=== PATIENT | female | born 1970 | race Caucasian/White ===

== ENCOUNTER 2023-07-05 07:51 | Emergency (ER) | payer BC, SELFPAY ==
[2023-07-05] MEDS ORDERED: MORPHINE 4 MG/ML SYR ONE (08:09)
[2023-07-05] MEDS ORDERED: NA CHLORIDE 0.9% 1,000 ML ONE ×2 (08:09→09:51)
[2023-07-05] MEDS ORDERED: ONDANSETRON 4 MG/2 ML VIAL ONE (08:09)
[2023-07-05] MEDS ORDERED: FAMOTIDINE 20 MG/2 ML VIAL IV ONE (08:09)
[2023-07-05] MEDS ORDERED: HYDROMORPHONE HCL 1 MG/ML INJ ONE ×2 (08:17→08:42)
[2023-07-05] MEDS ORDERED: CEFTRIAXONE 1000 MG/VIAL ONE (08:42)
[2023-07-05] MEDS ORDERED: KETOROLAC 30 MG/ML INJ ONE (08:42)
[2023-07-05 08:46] LABS: Absolute Basophils 0.2 K/uL (0-0.5); Absolute Eosinophils 0.3 K/uL (0-0.5); Absolute Lymphocytes (CBC) 2.7 K/uL (0.7-4.9); Absolute Monocytes 0.7 K/uL (0.1-1.3); Absolute Neutrophil 8.3 K/uL (1.8-8.0); Basophils % 1.4 % (0-1.3); Eosinophils % 2.5 % (0-4.4); Hematocrit 44.1 % (36.0-45.0); Hemoglobin 14.7 g/dL (12.0-15.0); Lymphocytes % 22.4 % (15.3-44.8); MCH 29.4 pg (27.0-35.0); MCHC 33.3 g/dL (32.0-36.0); MCV 88.2 fL (80-100); Monocytes % 5.8 % (3.3-12.3); Neutrophils % 67.9 % (41.7-73.7); Nucleated Red Blood Cells % 0.1 % (0-0); Platelets 522 thou/uL (152-406); Red Cell Distribution Width 13.4 % (12.1-15.2)
--- NOTE | 2023-07-05 09:02 | RAD REPORT ---
EXAM DESCRIPTION: CTStone Protocol - 07/05/2023 8:51 am CLINICAL HISTORY: Abd pain;Flank pain COMPARISON: CT ABD PELVIS W CONTRAST dated 02/11/2013 TECHNIQUE: CT of the abdomen and pelvis was performed. All CT scans are performed using dose optimization technique as appropriate and may include automated exposure control or mA/KV adjustment according to patient size. FINDINGS: Lower chest: Mild circumferential thickened distal esophagus. Small hiatal hernia. Liver: Too small to characterize liver lesions which are likely benign. Biliary: Cholecystectomy. Extrahepatic biliary duct dilatation is similar to 2013 and likely related to the postcholecystectomy state. The common bile duct measures 14 millimeters. Stomach: No significant focal abnormality. Duodenum: No significant focal abnormality. Pancreas: No significant abnormality. Spleen: No significant abnormality. Adrenal: No suspicious lesions. Kidney/ureter: No hydronephrosis. No renal calculi. Retroperitoneum: No retroperitoneal adenopathy. Vascular: No aneurysm. Bowel: No bowel obstruction.. Normal appendix. Peritoneum: No ascites or free air. Tiny fat containing umbilical hernia. Bladder: Grossly unremarkable. Reproductive: No adnexal masses. Bones: No acute fracture. Other: n/a IMPRESSION: No acute intra-abdominal or pelvic finding. Specifically, no renal or ureteral calculi. Cholecystectomy with similar chronic extrahepatic biliary duct dilatation. This is presumably related to the postcholecystectomy state. Correlate with LFTs. If abnormal, could consider MRCP for further evaluation.
[2023-07-05 09:03] LABS: ALT/SGPT 19 U/L (13-56); AST/SGOT 12 U/L (15-37); Albumin 3.7 g/dL (3.4-5.0); Alkaline Phosphatase 79 U/L (45-117); Anion Gap 9.1 mEq/L (5.0-15.0); BUN Blood Urea Nitrogen 9 mg/dL (7-18); Bicarbonate 24 mEq/L (21-32); Bilirubin Total 0.3 mg/dL (0.2-1.0); Globulin 3.8 g/dL (2.3-3.5); Glomerular Filtration Rate 63 ml/min (=/>90); Glucose Level 91 mg/dL (74-106); Lipase 25 U/L (13-75); Potassium 4.1 mEq/L (3.5-5.1); Protein, Total 7.5 g/dL (6.4-8.2); Sodium Level 140 mEq/L (136-145)
[2023-07-05 09:05] LABS: Troponin High Sensitivity < 3.0 pg/mL (<58.9)
[2023-07-05 11:09] LABS: Specific Gravity 1.024 (1.005-1.030)
[2023-07-05 11:12] LABS: Specific Gravity 1.024 (1.005-1.030); Sqamous Epithelial <5 /HPF (None Seen); Urine Bacteria None Seen /HPF (<20); Urine Bilirubin NEGATIVE (Negative); Urine Blood 3+ (Negative); Urine Clarity Extremely Turbid (Clear); Urine Color Yellow (Yellow); Urine Culture Reflex Order NOT NEEDED; Urine Glucose NEGATIVE (Negative); Urine Ketones NEGATIVE (Negative); Urine Microscopic Reflex YN ORDER UMIC; Urine Mucus Slight /HPF (None Seen); Urine Nitrite NEGATIVE (Negative); Urine Protein TRACE (Negative); Urine RBC >50 /HPF (None Seen); Urine Urobilinogen Normal (Normal); Urine WBC <5 /HPF (<5)
--- NOTE | 2023-07-05 12:04 | EDPHYS ---
Physician Documentation [facility] Name: Josie Holly Age: 52 yrs Sex: Female : 1970 Arrival Date: 07/05/2023 Time: 07:51 Bed 4 Private MD: ARGENIS Physician Steven Suazo HPI: 07/04 10:51 This 52 yrs old Female presents to ER via Wheelchair with complaints of vladimir Abdominal Pain. 10:51 The patient presents with abdominal pain right lower quadrant. Onset: The vladimir symptoms/episode began/occurred just prior to arrival, this morning. The patient complains of pain in the right mid back and right low back. The pain radiates to the right mid back and right low back. Modifying factors: The symptoms are alleviated by nothing. the symptoms are aggravated by nothing. Associated signs and symptoms: The patient has no apparent associated signs or symptoms. The symptoms do not radiate. Modifying factors: The symptoms are alleviated by nothing, the symptoms are aggravated by nothing. Historical: - Allergies: 08:02 Latex, Natural Rubber; iw - PMHx: 08:02 Asthma; Migraines; UC; iw - PSHx: 08:02 Cholecystectomy; knee; iw - Immunization history:: Adult Immunizations not up to date. - Infectious Disease History:: Denies. - Social history:: Smoking status: Patient reports the use of cigarette tobacco products, 1 pack every 4 day . - Family history:: not pertinent. ROS: 10:51 Constitutional: Negative for fever, chills, and weight loss, Eyes: Negative for injury, vladimir pain, redness, and discharge, ENT: Negative for injury, pain, and discharge, Neck: Negative for injury, pain, and swelling, Cardiovascular: Negative for chest pain, palpitations, and edema, Respiratory: Negative for shortness of breath, cough, wheezing, and pleuritic chest pain, Back: Negative for injury and pain, : Negative for injury, bleeding, discharge, and swelling, MS/Extremity: Negative for injury and deformity, Skin: Negative for injury, rash, and discoloration, Neuro: Negative for headache, weakness, numbness, tingling, and seizure, Psych: Negative for depression, anxiety, suicide ideation, homicidal ideation, and hallucinations, Allergy/Immunology: Negative for hives, rash, and allergies, Endocrine: Negative for neck swelling, polydipsia, polyuria, polyphagia, and marked weight changes, Hematologic/Lymphatic: Negative for swollen nodes, abnormal bleeding, and unusual bruising, 10:51 Abdomen/GI: Positive for abdominal pain, nausea, of the right lower quadrant, Exam: 10:51 Constitutional: This is a well developed, well nourished patient who is awake, alert, vladimir and in no acute distress. Head/Face: Normocephalic, atraumatic. Eyes: Pupils equal round and reactive to light, extra-ocular motions intact. Lids and lashes normal. Conjunctiva and sclera are non-icteric and not injected. Cornea within normal limits. Periorbital areas with no swelling, redness, or edema. ENT: Nares patent. No nasal discharge, no septal abnormalities noted. Tympanic membranes are normal and external auditory canals are clear. Oropharynx with no redness, swelling, or masses, exudates, or evidence of obstruction, uvula midline. Mucous membranes moist. Neck: Trachea midline, no thyromegaly or masses palpated, and no cervical lymphadenopathy. Supple, full range of motion without nuchal rigidity, or vertebral point tenderness. No Meningismus. Chest/axilla: Normal chest wall appearance and motion. Nontender with no deformity. No lesions are appreciated. Cardiovascular: Regular rate and rhythm with a normal S1 and S2. No gallops, murmurs, or rubs. Normal PMI, no JVD. No pulse deficits. Respiratory: Lungs have equal breath sounds bilaterally, clear to auscultation and percussion. No rales, rhonchi or wheezes noted. No increased work of breathing, no retractions or nasal flaring. Back: No spinal tenderness. No costovertebral tenderness. Full range of motion. Skin: Warm, dry with normal turgor. Normal color with no rashes, no lesions, and no evidence of cellulitis. MS/ Extremity: Pulses equal, no cyanosis. Neurovascular intact. Full, normal range of motion. Neuro: Awake and alert, GCS 15, oriented to person, place, time, and situation. Cranial nerves II-XII grossly intact. Motor strength 5/5 in all extremities. Sensory grossly intact. Cerebellar exam normal. Normal gait. Psych: Awake, alert, with orientation to person, place and time. Behavior, mood, and affect are within normal limits. 10:51 Abdomen/GI: Inspection: Palpation: mild abdominal tenderness, in the right lower quadrant, Liver: no appreciated palpable abnormalities, Hernia: not appreciated, Vital Signs: 08:00 BP 122 / 66; Pulse 80; Resp 16; Pulse Ox 100% ; Weight 88 kg; Height 5 ft. 4 in. ; Pain iw 10; 09:08 BP 114 / 62 LA Supine (auto/reg); Pulse 68 MON; Resp 15 S; Temp 98(O); Pulse Ox 100% on jg11 R/A; 11:21 BP 120 / 68; Pulse 70; Resp 16; Pulse Ox 100% on R/A; mb9 12:37 BP 112 / 82; Pulse 72; Resp 18; Pulse Ox 100% on R/A; mb9 08:00 Body Mass Index 33.30 (88.00 kg, 162.56 cm) iw 08:00 Pain Scale: Adult iw MDM: 07:54 Patient medically screened. [facility] 10:57 Differential diagnosis: diverticulitis, Dysmenorrhea, Endometriosis, gastritis, vladimir Mesenteric ischemia or infarction, non-specific abd pain, pancreatitis. Data reviewed: vital signs, nurses notes, lab test result(s), radiologic studies, CT scan. Consideration of Admission/Observation Escalation of care including admission/observation considered. I considered the following discharge prescriptions or medication management in the emergency department Medications were administered in the Emergency Department. See MAR. Independent interpretation of the following test(s) in the Emergency Department EKG: See my EKG interpretation above. Test considered but Not performed: MRI: no mrcp . Care significantly affected by the following chronic conditions: asthma, migraines, uc. 07/04 07:55 Order name: CBC with Diff; Complete Time: 09: [facility] 07/04 07:55 Order name: CMP; Complete Time: 09:21 [facility] 07/04 07:55 Order name: Lipase; Complete Time: 09: [facility] 07/04 07:55 Order name: Test, Urine; Complete Time: 12:02 [facility] 07/04 07:55 Order name: Urinalysis w/ reflexes; Complete Time: 12:02 [facility] 07/04 07:55 Order name: Troponin HS; Complete Time: 09: [facility] 07/04 08:37 Order name: CT Stone Protocol; Complete Time: 09: [facility] 07/04 07:55 Order name: EKG; Complete Time: 07:56 [facility] 07/04 07:55 Order name: IV Saline Lock; Complete Time: 08:24 [facility] 07/04 07:55 Order name: Labs collected and sent; Complete Time: 08:24 [facility] 07/04 07:55 Order name: EKG - Nurse/Tech; Complete Time: 08:24 [facility] Administered Medications: 08:24 Drug: NS 0.9% IV 1000 ml IV at 1 bolus Per protocol; 1000 mL bolus Route: IV; Rate: 1 ll1 bolus; Site: left forearm; 10:18 Follow up: Response: No adverse reaction; IV Status: Completed infusion mb9 08:24 Drug: Famotidine IVP 20 mg IVP once; dilute with 10 mL 0.9% NaCl; give over 2 minutes ll1 Route: IVP; Site: left forearm; 09:04 Follow up: Response: No adverse reaction ll1 08:24 Drug: Ondansetron IVP 4 mg IVP once; over 2 minutes Route: IVP; Site: left forearm; ll1 09:04 Follow up: Response: No adverse reaction ll1 08:24 Not Given (Patient Refused): morphineor iv 4 mg IVP once over 4 mins ll1 08:25 Drug: HYDROmorphone IVP 1 mg IVP once Route: IVP; Site: right forearm; ll1 09:04 Follow up: Response: No adverse reaction; Pain is decreased ll1 08:46 Drug: Ketorolac IVP 30 mg IVP once Route: IVP; Site: right forearm; ll1 09:05 Follow up: Response: No adverse reaction ll1 08:46 Drug: HYDROmorphone IVP 1 mg IVP once Route: IVP; Site: right forearm; ll1 10:18 Follow up: Response: No adverse reaction mb9 08:47 Drug: Rocephin IV 1 grams IV at per protocol once; Given slow IV push per pharmacy ll1 instructions Route: IV; Rate: per protocol; Site: right forearm; 09:05 Follow up: Response: No adverse reaction; IV Status: Completed infusion; IV Intake: ll1 1000ml 09:53 Drug: NS 0.9% IV 1000 ml IV at 1 bolus Per protocol; 1000 mL bolus Route: IV; Rate: 1 mb9 bolus; Site: right forearm; 12:19 Follow up: Response: No adverse reaction; IV Status: Completed infusion mb9 12:18 Drug: Promethazine IVP 25 mg IVP once Route: IVP; Site: right forearm; mb9 12:38 Follow up: Response: No adverse reaction mb9 12:35 Drug: Flomax PO 0.4 mg PO once Route: PO; mb9 12:38 Follow up: Response: No adverse reaction mb9 Disposition Summary: 07/05/23 12:03 Discharge Ordered Notes: Location: Home vladimir Problem: new vladimir Symptoms: have improved vladimir Condition: Stable vladimir Diagnosis - Lower abdominal pain, unspecified vladimir - Hydronephrosis with renal and ureteral calculous obstruction - no stone seen vladimir - Hematuria, unspecified vladimir Followup: vladimir - With: Private Physician - When: 2 - 3 days - Reason: Recheck today's complaints, Continuance of care, Re-evaluation by your physician Discharge Instructions: - Discharge Summary Sheet vladimir - Abdominal Pain, Adult vladimir - Flank Pain, Adult vladimir - Hematuria, Adult vladimir - Kidney Stones vladimir - Kidney Stones, [id number] vladimir - Abdominal Pain, Adult, [id number] vladimir - Dietary Guidelines to Help Prevent Kidney Stones vladimir Forms: - Medication Reconciliation Form vladimir - Thank You Letter vladimir - Antibiotic Education vladimir - Prescription Opioid Use vladimir - Patient Portal Instructions vladimir - Leadership Thank You Letter vladimir - Work release form iw Prescriptions: - acetaminophen-codeine 300-30 mg Oral tablet - take 2 tablet ORAL route every 6 hours; 18 tablet; Refills: 0, Product vladimir Selection Permitted - ondansetron 4 mg Oral Tablet,disintegrating - take 1 tablet ORAL route every 6-8 hours for 5 days; 20 tablet; Refills: 0, [facility] Product Selection Permitted - Flomax 0.4 mg Oral capsule - take 1 capsule ORAL route every 24 hours; 14 capsule; Refills: 0, Product vladimir Selection Permitted - promethazine 25 mg Rectal suppository - insert 1 suppository RECTAL route every 6 hours as needed for nausea and vladimir vomiting; 15 suppository; Refills: 0, Product Selection Permitted - Cipro 250 mg Oral tablet - take 1 tablet ORAL route every 12 hours; 14 tablet; Refills: 0, Product vladimir Selection Permitted - Diclofenac Sodium 75 mg Oral tablet, delayed release (enteric coated) - take 1 tablet ORAL route 2 times per day; 14 tablet; Refills: 0, Product vladimir Selection Permitted - dicyclomine 20 mg Oral tablet - take 1 tablet ORAL route 4 times per day; 28 tablet; Refills: 0, Product vladimir Selection Permitted Signatures: Dispatcher [employer] EDMS Steven Suazo MD MD cha Williams, Irene RN RN Toni Nunez RN RN ll1 Lupis, Nereyda Olmos RN RN mb9 Corrections: (The following items were deleted from the chart) 07:56 07:56 CBC+H.LAB.BRZ ordered. EDMS EDMS 07:56 07:56 COMPREHENSIVE METABOLIC PANEL+C.LAB.BRZ ordered. EDMS EDMS 07:56 07:56 LIPASE+C.LAB.BRZ ordered. EDMS EDMS 07:56 07:56 Test, Urine+UC.LAB.BRZ ordered. EDMS EDMS 07:56 07:56 Urinalysis+U.LAB.BRZ ordered. EDMS EDMS 07:56 07:56 Troponin High Sensitivity+C.LAB.BRZ ordered. EDMS EDMS 08:03 08:02 Allergies: No Known Allergies; [facility] 08:43 07:56 Abdomen Pelvis W Con+CT.RAD.BRZ ordered. EDMS EDMS
--- NOTE | 2023-07-05 12:04 | ER ---
Nurse's Notes [facility] Name: Josie Holly Age: 52 yrs Sex: Female : 1970 Arrival Date: 07/05/2023 Time: 07:51 Bed 4 Private MD: Diagnosis: Lower abdominal pain, unspecified;Hydronephrosis with renal and ureteral calculous obstruction-no stone seen;Hematuria, unspecified Presentation: 07/04 08:00 Chief complaint: Patient states: right lower abd pain since 629, started her cycle iw yesterday thought it was regular cramps but this is worse , +nausea and vomiting. Coronavirus screen: At this time, the client does not indicate any symptoms associated with coronavirus-19. Ebola Screen: Patient negative for fever greater than or equal to 101.5 degrees Fahrenheit, and additional compatible Ebola Virus Disease symptoms Patient denies exposure to infectious person. Patient denies travel to an Ebola-affected area in the 21 days before illness onset. No symptoms or risks identified at this time. Initial Sepsis Screen: Does the patient meet any 2 criteria? No. Patient's initial sepsis screen is negative. Does the patient have a suspected source of infection? No. Patient's initial sepsis screen is negative. Risk Assessment: Do you want to hurt yourself or someone else? Patient reports no desire to harm self or others. Onset of symptoms was July 05, 2023. 08:00 Method Of Arrival: Wheelchair iw 08:00 Acuity: SUMAN 3 iw Historical: - Allergies: 08:02 Latex, Natural Rubber; iw - PMHx: 08:02 Asthma; Migraines; UC; iw - PSHx: 08:02 Cholecystectomy; knee; iw - Immunization history:: Adult Immunizations not up to date. - Infectious Disease History:: Denies. - Social history:: Smoking status: Patient reports the use of cigarette tobacco products, 1 pack every 4 day . - Family history:: not pertinent. Screenin:26 [facility] ED Fall Risk Assessment (Adult) History of falling in the last 3 months, ll1 including since admission No falls in past 3 months (0 pts) Confusion or Disorientation No (0 pts) Intoxicated or Sedated No (0 pts) Impaired Gait Yes (1 pt) Mobility Assist Device Used Yes (1 pt) Altered Elimination No (0 pt) Score/Fall Risk Level 0 - 2 = Low Risk Oriented to surroundings, Hourly rounding (assess needs \T\ fall precautionary measures) done. Abuse screen: Denies threats or abuse. Nutritional screening: No deficits noted. Tuberculosis screening: No symptoms or risk factors identified. Assessment: 08:25 General: Appears uncomfortable, ill, Behavior is cooperative, appropriate for age, ll1 anxious, restless. Pain: Complains of pain in abdomen Pain currently is 10 out of 10 on a pain scale. Quality of pain is described as aching, sharp, Pain began 2 hours ago. GI: Reports lower abdominal pain. 08:25 GI: Abd is soft Abdomen is tender to palpation X 4 quads. Reports nausea, vomiting. ll1 08:47 Reassessment: No changes from previously documented assessment. Patient and/or family ll1 updated on plan of care and expected duration. Pain level reassessed. Patient is alert, oriented x 3, equal unlabored respirations, skin warm/dry/pink. 09:05 Reassessment: No changes from previously documented assessment. Patient and/or family ll1 updated on plan of care and expected duration. Pain level reassessed. 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 10:18 Reassessment: No changes from previously documented assessment. Patient and/or family mb9 updated on plan of care and expected duration. Pain level reassessed. Patient is alert, oriented x 3, equal unlabored respirations, skin warm/dry/pink. 11:52 Reassessment: No changes from previously documented assessment. Patient and/or family mb9 updated on plan of care and expected duration. Pain level reassessed. Patient is alert, oriented x 3, equal unlabored respirations, skin warm/dry/pink. 12:19 Reassessment: pt actively vomiting. ERP notified. Discharge pending pt condition and mb9 medication. 12:38 Reassessment: Patient and/or family updated on plan of care and expected duration. Pain mb9 level reassessed. Patient is alert, oriented x 3, equal unlabored respirations, skin warm/dry/pink. Patient states feeling better. Patient states symptoms have improved. Vital Signs: 08:00 BP 122 / 66; Pulse 80; Resp 16; Pulse Ox 100% ; Weight 88 kg; Height 5 ft. 4 in. ; Pain iw 01/02; 09:08 BP 114 / 62 LA Supine (auto/reg); Pulse 68 MON; Resp 15 S; Temp 98(O); Pulse Ox 100% on jg11 R/A; 11:21 BP 120 / 68; Pulse 70; Resp 16; Pulse Ox 100% on R/A; mb9 12:37 BP 112 / 82; Pulse 72; Resp 18; Pulse Ox 100% on R/A; mb9 08:00 Body Mass Index 33.30 (88.00 kg, 162.56 cm) iw 08:00 Pain Scale: Adult iw ED Course: 07:52 Patient arrived in ED. rg4 07:53 Steven Suazo MD is Attending Physician. vladimir 07:55 Patient has correct armband on for positive identification. Bed in low position. ll1 Provided Education on: ER procedures and process. 08:02 Triage completed. iw 08:03 Arm band placed on. iw 08:04 Toni Nunez RN is Primary Nurse. ll1 08:10 Initial lab(s) drawn, by tn, sent to lab. Inserted saline lock: 22 gauge in right ll1 forearm, using aseptic technique. Blood collected. 08:20 EKG done, by ED staff, reviewed by Steven Suazo MD. ll1 08:53 CT Stone Protocol In Process Unspecified. EDMS 10:18 No provider procedures requiring assistance completed. mb9 10:54 Urine collected: clean catch specimen, clear. jg11 12:06 IV discontinued, intact, bleeding controlled, No redness/swelling at site. Pressure mb9 dressing applied. Administered Medications: 08:24 Drug: NS 0.9% IV 1000 ml IV at 1 bolus Per protocol; 1000 mL bolus Route: IV; Rate: 1 ll1 bolus; Site: left forearm; 10:18 Follow up: Response: No adverse reaction; IV Status: Completed infusion mb9 08:24 Drug: Famotidine IVP 20 mg IVP once; dilute with 10 mL 0.9% NaCl; give over 2 minutes ll1 Route: IVP; Site: left forearm; 09:04 Follow up: Response: No adverse reaction ll1 08:24 Drug: Ondansetron IVP 4 mg IVP once; over 2 minutes Route: IVP; Site: left forearm; ll1 09:04 Follow up: Response: No adverse reaction ll1 08:24 Not Given (Patient Refused): morphineor iv 4 mg IVP once over 4 mins ll1 08:25 Drug: HYDROmorphone IVP 1 mg IVP once Route: IVP; Site: right forearm; ll1 09:04 Follow up: Response: No adverse reaction; Pain is decreased ll1 08:46 Drug: Ketorolac IVP 30 mg IVP once Route: IVP; Site: right forearm; ll1 09:05 Follow up: Response: No adverse reaction ll1 08:46 Drug: HYDROmorphone IVP 1 mg IVP once Route: IVP; Site: right forearm; ll1 10:18 Follow up: Response: No adverse reaction mb9 08:47 Drug: Rocephin IV 1 grams IV at per protocol once; Given slow IV push per pharmacy ll1 instructions Route: IV; Rate: per protocol; Site: right forearm; 09:05 Follow up: Response: No adverse reaction; IV Status: Completed infusion; IV Intake: ll1 1000ml 09:53 Drug: NS 0.9% IV 1000 ml IV at 1 bolus Per protocol; 1000 mL bolus Route: IV; Rate: 1 mb9 bolus; Site: right forearm; 12:19 Follow up: Response: No adverse reaction; IV Status: Completed infusion mb9 12:18 Drug: Promethazine IVP 25 mg IVP once Route: IVP; Site: right forearm; mb9 12:38 Follow up: Response: No adverse reaction mb9 12:35 Drug: Flomax PO 0.4 mg PO once Route: PO; mb9 12:38 Follow up: Response: No adverse reaction mb9 Medication: 08:27 VIS not applicable for this client. ll1 Intake: 09:05 IV: 1000ml; Total: 1000ml. ll1 Outcome: 12:03 Discharge ordered by MD. gilbert 12:06 Discharged to home ambulatory, mb9 12:06 Condition: stable 12:06 Discharge instructions given to patient, Instructed on discharge instructions, follow up and referral plans. Demonstrated understanding of instructions, follow-up care, medications, Prescriptions given X 6 12:44 Patient left the ED. mb9 Signatures: Dispatcher [employer] EDMS Steven Suazo MD MD cha Williams, Irene RN Masha Shahid rg4 Toni Nunez RN RN 1 Nereyda Baugh RN RN mb9 Dre Gordon [email or web address] Corrections: (The following items were deleted from the chart) 08:03 08:02 Allergies: No Known Allergies; iw 08:26 08:25 Pain: Complains of pain in abdomen Pain currently is 10 out of 10 on a pain ll1 scale. Quality of pain is described as aching, sharp, Pain began 2 hours ago. ll1
[2023-07-05] MEDS ORDERED: TAMSULOSIN 0.4 MG SR CAP ONE (12:11)
[2023-07-05] MEDS ORDERED: PROMETHAZINE INJ 25 MG/ML AMP ONE (12:12)
[2023-07-05 13:21] VITALS: BP 112/82; TEMP 98; O2SAT 100
--- NOTE | 2023-07-06 13:40 | EKG ---
Test Date: 2023-07-05 Test Time: 08:20:24 Brake Adjuster: ALEXANDER MEASUREMENT RESULTS: Intervals: Rate: 81 MT: QRSD: 62 QT: 382 QTc: 443 [place]: P: MT: QRS: 77 T: 27 INTERPRETIVE STATEMENTS: Accelerated Junctional rhythm Low voltage QRS Abnormal ECG No previous ECG available for comparison Electronically Signed On 07-06-23 13:38:13 CDT by Josh Salcedo
== END 2023-07-05 12:44 | disposition home or self-care (01) ==
LOC: ER 07:51
DX: N13.30 Unspecified hydronephrosis (principal); R31.9 Hematuria, unspecified; F17.210 Nicotine dependence, cigarettes, uncomplicated; Z91.040 Latex allergy status; Z91.048 Other nonmedicinal substance allergy status
CPT/HCPCS: 36415; 74176; 76377; 80053; 81001; 81025; 83690; 84484; 85025; 93005; 99284; J0696; J1170; J2405; J2550; J7030